=== PATIENT | female | born 1995 | race African-American/Black ===

== ENCOUNTER 2017-07-05 13:50 | Outpatient (CLI) | payer BC ==
[~2017-07-05] VITALS: Ht 170.2 cm; Wt 65.0 kg
[2017-07-05 14:53] LABS: HEMATOCRIT 31.7 % (36.0-46.0); MCH 31.3 PG (29.0-34.0); MCHC 34.7 G/DL (30.0-36.0); MCV 90.1 FL (83-99); PLATELET COUNT 248 K/uL (156-360); RBC DIS.WIDTH-CV 11.9 % (11.8-14.6); RBC DIS.WIDTH-SD 39.4 % (39-53); RED BLOOD COUNT 3.52 M/uL (3.80-5.20); WHITE BLOOD COUNT 13.5 K/uL (4.1-10.2)
[2017-07-05 15:01] LABS: CHLORIDE 108 mEq/L (99-109); POTASSIUM 4.1 mEq/L (3.7-5.4); SODIUM 138 mEq/L (136-147)
[2017-07-05 15:03] LABS: GLUCOSE 90 mg/dL (70-99)
[2017-07-05 15:07] LABS: CREATININE 0.6 mg/dL (0.6-1.3)
[2017-07-05 15:08] LABS: UREA NITROGEN (BUN) 6 mg/dL (9-23)
[2017-07-05 15:13] LABS: GFR ESTIMATE (CALCULATED) > 59 mL/min/
[2017-07-05 15:33] LABS: QUANTITATIVE HCG 87538.3 MIU/ML
[2017-07-05] MEDS ORDERED: PRENATAL TABLE1 EAC3 PO (18:42)
[2017-07-05 18:47] LABS: BASOPHIL (%) 0.1 % (0-1); EOSINOPHIL (%) 0.7 % (0-5); EOSINOPHIL COUNT 0.1 K/uL (0-0.3); HEMOGLOBIN 9.9 G/DL (11.9-15.5); IMMATURE GRANULOCYTE (%) 0.4 % (0.0-0.7); LYMPHOCYTE (%) 17.8 % (15-42); LYMPHOCYTE COUNT 2.3 K/uL (1.0-2.8); MCH 31.2 PG (29.0-34.0); MCHC 34.1 G/DL (30.0-36.0); MCV 91.5 FL (83-99); MONOCYTE (%) 2.5 % (3-12); MONOCYTE COUNT 0.3 K/uL (0-0.8); NEUTROPHIL (%) 78.5 % (45-76); NEUTROPHIL COUNT 10.2 K/uL (1.8-6.4); PLATELET COUNT 210 K/uL (156-360); RBC DIS.WIDTH-SD 40.8 % (39-53); RED BLOOD COUNT 3.17 M/uL (3.80-5.20)
[2017-07-05 19:47] VITALS: BP 104/53
[2017-07-05 20:46] VITALS: BP 97/52
[2017-07-05 21:32] VITALS: BP 118/68
[2017-07-05 22:33] VITALS: BP 129/57
[2017-07-06] VITALS (21 sets, daily range): BP systolic 83–108; BP diastolic 46–56
[2017-07-06 16:14] LABS: BASOPHIL (%) 0.1 % (0-1); EOSINOPHIL (%) 0 % (0-5); HEMATOCRIT 16.6 % (36.0-46.0); HEMOGLOBIN 5.7 G/DL (11.9-15.5); IMMATURE GRANULOCYTE (%) 0.8 % (0.0-0.7); LYMPHOCYTE (%) 3.5 % (15-42); LYMPHOCYTE COUNT 0.7 K/uL (1.0-2.8); MCH 31.8 PG (29.0-34.0); MCHC 34.3 G/DL (30.0-36.0); MCV 92.7 FL (83-99); MONOCYTE (%) 0.4 % (3-12); MONOCYTE COUNT 0.1 K/uL (0-0.8); NEUTROPHIL (%) 95.2 % (45-76); NEUTROPHIL COUNT 17.5 K/uL (1.8-6.4); PLATELET COUNT 161 K/uL (156-360); RBC DIS.WIDTH-CV 11.9 % (11.8-14.6); RBC DIS.WIDTH-SD 40.8 % (39-53); RED BLOOD COUNT 1.79 M/uL (3.80-5.20); WHITE BLOOD COUNT 18.4 K/uL (4.1-10.2)
[2017-07-07] VITALS (12 sets, daily range): BP systolic 84–107; BP diastolic 46–65
[2017-07-07 07:24] LABS: HEMATOCRIT 20.1 % (36.0-46.0); MCH 31.5 PG (29.0-34.0); MCHC 34.8 G/DL (30.0-36.0); MCV 90.5 FL (83-99); PLATELET COUNT 150 K/uL (156-360); RBC DIS.WIDTH-CV 12.9 % (11.8-14.6); RBC DIS.WIDTH-SD 42.7 % (39-53)
[2017-07-07 07:27] LABS: RED BLOOD COUNT 2.22 M/uL (3.80-5.20)
[2017-07-07 17:00] LABS: BASOPHIL (%) 0.2 % (0-1); EOSINOPHIL (%) 0.7 % (0-5); EOSINOPHIL COUNT 0.1 K/uL (0-0.3); HEMATOCRIT 24.5 % (36.0-46.0); HEMOGLOBIN 8.6 G/DL (11.9-15.5); IMMATURE GRANULOCYTE (%) 0.8 % (0.0-0.7); LYMPHOCYTE (%) 25.2 % (15-42); LYMPHOCYTE COUNT 3.4 K/uL (1.0-2.8); MCH 32.1 PG (29.0-34.0); MCHC 35.1 G/DL (30.0-36.0); MCV 91.4 FL (83-99); MONOCYTE (%) 2.5 % (3-12); MONOCYTE COUNT 0.3 K/uL (0-0.8); NEUTROPHIL (%) 70.6 % (45-76); NEUTROPHIL COUNT 9.6 K/uL (1.8-6.4); PLATELET COUNT 148 K/uL (156-360); RBC DIS.WIDTH-CV 13.3 % (11.8-14.6); RBC DIS.WIDTH-SD 43.8 % (39-53); WHITE BLOOD COUNT 13.6 K/uL (4.1-10.2)
[2017-07-07 18:09] LABS: RED BLOOD COUNT 2.68 M/uL (3.80-5.20)
[2017-07-07] MEDS ORDERED: IBUPROFEN800 MG PO (18:37)
[2017-07-07] MEDS ORDERED: HYDROCODON-ACE1 EAC7 PO (18:37)
== END 2017-07-07 19:00 | disposition home or self-care (01) ==
LOC: EME 13:50 → LDRP-OP 13:50 → EME 18:05 → EDSTATUS 18:10 → 2WEST 18:11
PROVIDERS: Advanced Practice Midwife; Nurse Practitioner Family; Obstetrics & Gynecology
DX: O72.2 Delayed and secondary postpartum hemorrhage (principal); D62 Acute posthemorrhagic anemia; D50.9 Iron deficiency anemia, unspecified; O03.4 Incomplete spontaneous abortion without complication; F17.200 Nicotine dependence, unspecified, uncomplicated; M94.0 Chondrocostal junction syndrome [Tietze]
CPT/HCPCS: 76801; 80048; 81003; 84702; 85025; 85027; 86850; 86900; 86901; 86920; 88300; 88305; G0378; J0330; J0595; J0690; J1100; J1200; J1940; J2210; J2250; J2270; J2405; J2765; J3010; J7120; P9016